=== PATIENT | male | born 1945 | race Caucasian/White ===

== ENCOUNTER 2017-02-01 13:38 | Emergency (ER) | payer BC, MEDICARE, OTHER ==
[~2017-02-01] VITALS: Ht 182.9 cm; Wt 81.6 kg
[2017-02-01 14:06] VITALS: BP 111/66
--- NOTE | 2017-02-01 14:10 | NUR ---
BIB SELF C/O HEADACHE S/P SLIP AND FALL THIS MORNING, DENIES LOC, NECK, OR BACK PAIN, NAD NOTED, VSS. WAITING FOR MD LUCAS.
--- NOTE | 2017-02-01 14:33 | NUR ---
PT TO [facility]
--- NOTE | 2017-02-01 15:43 | NUR ---
Patient discharged to home in stable condition. Written and verbal after care instructions given. Patient verbalizes understanding of instruction.
== END 2017-02-01 15:45 | disposition home or self-care (01) ==
LOC: ER 13:41
DX: S09.90XA Unspecified injury of head, initial encounter (principal); S00.03XA Contusion of scalp, initial encounter; W01.198A Fall on same level from slipping, tripping and stumbling with subsequent striking against other object, initial encounter; Y93.89 Activity, other specified; Y92.89 Other specified places as the place of occurrence of the external cause; Y99.9 Unspecified external cause status
CPT/HCPCS: 70450; 72125; 99284; A4606; Z7610